=== PATIENT | male | born 1945 | race Caucasian/White ===

== ENCOUNTER 2017-06-27 08:21 | Inpatient (IN) ==
[2017-06-22 13:56] LABS: Appearance,Urine CLEAR; Bilirubin,Urine NEG (NEG); Color,Urine YELLOW; Glucose,Urine (UA) NEGATIVE (NEG); Leukocyte Esterase,Urine NEG /uL (NEG); Nitrate,Urine NEG (NEG); Protein,Urine NEG (NEG); Specific Gravity,Urine 1.014 (1.000-1.035); Urine Blood NEG mg/dL (<0.03); Urobilinogen,Urine NEG (NEG)
[2017-06-22 13:58] LABS: Basophils # (Auto) 0 K/mcL (0.0-0.3); Basophils % (Auto) 0.4 % (0.0-2.0); Eosinophils # (Auto) 0.2 K/mcL (0.0-0.7); Eosinophils % (Auto) 2.4 % (0.0-7.0); Granulocytes % (Auto) 65.4 % (38.0-78.0); Lymphocytes # (Auto) 1.9 K/mcL (1.5-4.8); Mean Corpuscular HGB Conc 33.8 g/dL (31.0-36.0); Mean Corpuscular Hemoglobin 32.5 pg (26.0-34.0); Monocytes # (Auto) 1.1 K/mcL (0.1-0.9); Monocytes % (Auto) 11.8 % (1.0-12.0); Platelet Count 346 K/mcL (140-440); RBC 4.56 M/mcL (4.50-5.90); Red Cell Distribution Width 13.8 % (11.5-14.5)
[2017-06-22 14:09] LABS: Blood Urea Nitrogen 18 mg/dl (8-23)
[~2017-06-27 08:21] MED LIST: ACETAMINOPHEN 500 MG TABLET PO SCH; CELECOXIB 200 MG CAPSULE PO SCH; PREGABALIN 75 MG CAPSULE PO SCH; ceFAZolin 1 GM VIAL IV SCH; oxyCODONE 10 MG TAB.ER.12H PO SCH
[2017-06-27] MEDS ORDERED: KETOROLAC 30 MG, ROPIVACAINE HCL/PF 49.5 ML, EPINEPHrine 0.5 MG, 0.9 % SODIUM CHLORIDE ... IJ ONE (09:00)
[2017-06-27] MEDS ORDERED: DEXAMETHASONE 10 MG/ML VIAL IV ONE (11:15)
[2017-06-27] MEDS ORDERED: ePHEDrine 50 MG/ML AMPUL IV ONE (11:15)
[2017-06-27] MEDS ORDERED: GLYCOPYRROLATE 0.2 MG/ML VIAL IV ONE (11:15)
[2017-06-27] MEDS ORDERED: PROPOFOL 200 MG/20 ML VIAL IV ONE (11:15)
[2017-06-27] MEDS ORDERED: MIDAZOLAM 5 MG/5 ML VIAL IV ONE (11:15)
[2017-06-27] MEDS ORDERED: ONDANSETRON 4 MG/2 ML VIAL IV ONE (11:15)
[2017-06-27] MEDS ORDERED: TRANEXAMIC ACID 1,000 MG/10 ML VIAL IV ONE (11:15)
[2017-06-27] MEDS ORDERED: LIDOCAINE HCL/PF 100 MG/5 ML SYRINGE IV ONE (11:15)
[2017-06-27] MEDS ORDERED: ROPIVACAINE HCL/PF 20 ML VIAL IJ ONE (11:15)
[2017-06-27] MEDS ORDERED: GENTAMICIN SULFATE 800 MG/20 ML VIAL IR ONE (11:38)
[2017-06-27] MEDS ORDERED: diphenhydrAMINE 50 MG/ML VIAL IV PRN (12:40)
[2017-06-27] MEDS ORDERED: fentaNYL 100 MCG/2 ML VIAL IV PRN (12:40)
[2017-06-27] MEDS ORDERED: MEPERIDINE 25 MG/ML SYRINGE IV PRN (12:40)
[2017-06-27] MEDS ORDERED: NALOXONE HCL 0.4 MG/ML VIAL IV PRN (12:40)
[2017-06-27] MEDS ORDERED: ONDANSETRON 4 MG/2 ML VIAL IV PRN ×2 (12:40→12:50)
[2017-06-27] MEDS ORDERED: METHOCARBAMOL 1,000 MG/10 ML VIAL IV PRN (12:40)
[2017-06-27] MEDS ORDERED: BENZOCAINE/MENTHOL 1 LOZENGE PO PRN ×2 (12:40→12:50)
[2017-06-27] MEDS ORDERED: PROMETHAZINE 25 MG/ML VIAL IV PRN (12:40)
[2017-06-27] MEDS ORDERED: IPRATROPIUM/ALBUTEROL 3 ML AMPUL.NEB NEB PRN (12:40)
[2017-06-27] MEDS ORDERED: LACTATED RINGERS 250 ML IV PRN (12:40)
[2017-06-27] MEDS ORDERED: FLUMAZENIL 0.1 MG/ML ML IV PRN (12:40)
[2017-06-27] MEDS ORDERED: LACTATED RINGERS 1,000 ML IV SCH (12:45)
[2017-06-27] MEDS ORDERED: TRANEXAMIC ACID 1,000 MG/10 ML VIAL IV SCH (12:50)
[2017-06-27] MEDS ORDERED: HYDROmorphone 2 MG/ML SYRINGE IV PRN (12:50)
[2017-06-27] MEDS ORDERED: FLEETS ADULT ENEMA PR PRN (12:50)
[2017-06-27] MEDS ORDERED: POLYETHYLENE GLYCOL 3350 17 GM PACKET PO PRN (12:50)
[2017-06-27] MEDS ORDERED: ACETAMINOPHEN 325 MG TABLET PO PRN (12:50)
[2017-06-27] MEDS ORDERED: HYDROcodone/APAP 10/325MG TABLET PO PRN (12:50)
[2017-06-27] MEDS ORDERED: MAGNESIUM HYDROXIDE 30 ML ORAL.SUSP PO PRN (12:50)
[2017-06-27] MEDS ORDERED: BISACODYL 10 MG SUPP.RECT PR PRN (12:50)
--- NOTE | 2017-06-27 12:50 | Brief Operative Note ---
Date of procedure: 06/27/17 Pre-op diagnosis: right knee djd Post-op diagnosis: same Procedure: right tka with robot valeriano Grafts/Implants: Yes Anesthesia: GETA Findings: severe djd Surgeon: Randal Biggs Grant Administrator: Roge Jackson Estimated blood loss (cc): 50 Tourniquet Time (Minutes): 54 Specimens Removed/Pathology: none sent Condition: stable Disposition: PACU
--- NOTE | 2017-06-27 13:43 | XRay Report ---
CLINICAL INFORMATION: Postop total knee prostheses COMPARISON: None. FINDINGS: Total knee prostheses is anatomically aligned. No osseous abnormality. Soft tissues swelling seen as expected IMPRESSION: Negative Interpreted and Authenticated by: Moshe Roberts 06/27/17
[2017-06-27] MEDS: 0.45 % SODIUM CHLORIDE 1,000 ML IV SCH ×2 (15:03→23:57)
--- NOTE | 2017-06-27 16:12 | Operative Note ---
DATE OF OPERATION: 06/27/2017 PREOPERATIVE DIAGNOSIS: Right knee degenerative arthritis, severe, throughout all three compartments. POSTOPERATIVE DIAGNOSES: Right knee degenerative arthritis, severe, throughout all three compartments, with the addition of a flexion contracture of about 13 to 14 degrees. PROCEDURE: Right total knee arthroplasty using the PRASHANT robot. SURGEON: Randal Biggs M.D. TEST OPERATOR: Roge Jackson PA-C. ANESTHESIA: General LMA anesthesia. COMPLICATIONS: None. TOURNIQUET TIME: 54 minutes. ESTIMATED BLOOD LOSS: About 50 mL. DESCRIPTION OF PROCEDURE: The patient was brought to the operating room. Once the knee had been confirmed as the operative site, we made a midline incision, a mid vastus approach performed. We inspected all the compartments of the knee, and there was a flexion contracture of about 12 to 13 degrees noted prior to the incision. After Ioban had been placed over the skin, we made our mid vastus approach as noted, exposing the joint, showing severe arthritis in all three compartments with large spurs medial and lateral and posteriorly. We then proceeded with the robotic total knee. The pins were placed above and below the knee. We removed the osteophytes, registered 30 points in the knee and registered intra-articular pins. We registered the hip center of rotation, medial and lateral malleolus, and then balanced the knee after removing osteophytes. Once the knee had been balanced and the implant adjusted, we then irrigated thoroughly and implanted the implant by making the bony cuts with the robot. These bony cuts were removed, punching into place and setting the tibial baseplate rotation per robotic alignment. We then removed the remnants of the meniscus, tapped into place the size 5 femur and size 5 tibial baseplate. We trialed a 9. This was still slightly tight medially. We released some of the medial collateral ligament which then allowed us place a 13 to balance both medial and lateral ligaments. We irrigated thoroughly. We then prepared the patella, measuring 24 mm in thickness. This was cut to 14 mm and a 36 mm patellar button was used. The holes were drilled and then we took the knee through range of motion, very stable. The patella tracked well. We then cemented into place the above-mentioned sizes and the patella, 13 mm poly. We kept the knee at 45 degrees until all cement was dry. Excess cement had been removed. We reirrigated the knee and then closed the mid vastus approach with #1 Stratafix x2 sutures. Skin was closed with 2-0 Vicryl and adhesive closure. The portals were closed with 4-0 nylon after the pins had been removed. There was no complication. The patient tolerated this well. ZAC:portia Job ID: [id number] Doc ID: [id number] Randal Biggs MD
[2017-06-27] MEDS: KETOROLAC 15 MG/ML VIAL IV SCH ×2 (18:03→23:57)
[2017-06-27] MEDS: 0.9 % SODIUM CHLORIDE 10 ML SYRINGE IV SCH ×2 (18:05→21:49)
[2017-06-27] MEDS: ceFAZolin 1 GM VIAL IV SCH (18:35)
[2017-06-27] MEDS ORDERED: SENNOSIDES 1 TABLET PO SCH (21:00)
[2017-06-27] MEDS ORDERED: MULTIVIT,THER IRON,CA,FA & MIN 1 TABLET PO SCH (21:00)
[2017-06-27] MEDS ORDERED: SIMVASTATIN 20 MG TABLET PO SCH (21:00)
[2017-06-27] MEDS ORDERED: AMITRIPTYLINE 25 MG TABLET PO SCH (21:00)
[2017-06-27] MEDS ORDERED: TEMAZEPAM 15 MG CAPSULE PO PRN (21:00)
[2017-06-27] MEDS ORDERED: LISINOPRIL 20 MG TABLET PO SCH (21:00)
[2017-06-27] MEDS ORDERED: amLODIPine 5 MG TABLET PO SCH (21:00)
[2017-06-27] MEDS ORDERED: FINASTERIDE 5 MG TABLET PO SCH (21:00)
[2017-06-27] MEDS ORDERED: FISH OIL 1,000 MG CAPSULE PO SCH (21:00)
[2017-06-27] MEDS: ASPIRIN 325 MG ENTERIC COATED TABLET PO SCH (21:10)
[2017-06-27] MEDS: DOCUSATE SODIUM 100 MG CAPSULE PO SCH (21:10)
[2017-06-28] MEDS: ceFAZolin 1 GM VIAL IV SCH (03:17)
[2017-06-28] MEDS: 0.9 % SODIUM CHLORIDE 10 ML SYRINGE IV SCH (05:38)
[2017-06-28] MEDS: KETOROLAC 15 MG/ML VIAL IV SCH ×2 (05:38→12:24)
--- NOTE | 2017-06-28 07:40 | Orthopedic Progress Note ---
Subjective Patient information: Note initiated : 06/28/17 at 7:39 am Service Date, if different from initiated Date: [] Patient: Jacob Maldonado 71 y/o M admitted on 06/27/17 for Right Total Knee Arthroplasty Franco. Chief Complaint: [Pt is stable this morning on post operative day 1 without any significant concerns or complaints. Patients vital signs have remained stable. Patients dressing is dry and exhibits a grossly intact neurovascular and neuromotor exam. Patients 10 point ROS is otherwise negative. ] Objective Vital signs: Vital Signs Temp Pulse Resp BP BP Pulse Ox 06/28/17 06:59 95 06/28/17 05:15 95 06/28/17 03:00 97.9 F 83 16 100/63 94 06/28/17 00:04 92 06/28/17 00:00 98.8 F 90 16 111/67 92 06/27/17 20:00 97.3 F 87 16 125/72 93 06/27/17 17:00 98 06/27/17 15:45 112/73 98 06/27/17 15:17 109/70 98 06/27/17 14:47 98/70 98 06/27/17 14:23 98/64 97 06/27/17 14:03 113/62 96 06/27/17 14:00 95 06/27/17 13:32 98.4 F 12 103/64 95 06/27/17 13:27 97.7 F 16 108/66 92 06/27/17 13:22 97.7 F 16 104/58 92 06/27/17 13:17 97.7 F 16 94/54 92 06/27/17 13:12 97.7 F 16 95/52 92 06/27/17 13:07 97.7 F 16 95/54 92 06/27/17 08:30 97.2 F 16 107/72 92 Intake and Output 06/27/17 06/28/17 06/28/17 21:59 05:59 13:59 Intake Total 640 / 640 1700 / 1700 Output Total 920 / 920 1650 / 1650 300 / 300 Balance -280 / -280 50 / 50 -300 / -300 Intake: IV 890 / 890 Sodium Chloride 0.45% 1,000 ml 890 / 890 @ 100 mls/hr IV .Q10H SAMRA Rx#: [id number] Oral 640 / 640 810 / 810 Output: Void Amount 920 / 920 1650 / 1650 300 / 300 Straight 620 / 620 400 / 400 Other: Meal Dinner [place], jello, cheese stik Percent of Meal Consumed 100% 100% Feeding Ability Independent Independent # Voids 2 Weight 232 lb Intake & Output: Intake & Output 06/27/17 06/28/17 06/28/17 21:59 05:59 13:59 Intake Total 640 / 640 1700 / 1700 Output Total 920 / 920 1650 / 1650 300 / 300 Balance -280 / -280 50 / 50 -300 / -300 Weight 232 lb Intake: IV 890 / 890 Sodium Chloride 0.45% 1,000 ml 890 / 890 @ 100 mls/hr IV .Q10H SAMRA Rx#: [id number] Oral 640 / 640 810 / 810 Output: Void Amount 920 / 920 1650 / 1650 300 / 300 Straight 620 / 620 400 / 400 Other: Meal Dinner [place], jello, cheese stik Percent of Meal Consumed 100% 100% Feeding Ability Independent Independent # Voids 2 Incision: Yes healing Incision clean and dry: Yes Dressing: Yes clean, Yes dry Weight bearing status: full Neurological exam IM: Yes motor sensory intact, Yes neurovascular intact Extremities exam IM: Yes Foot pink and warm, Yes neurovascular intact - Labs CBC & BMP: 06/28/17 05:15 06/22/17 10:07 Labs: Orthopedic Labs 06/22/17 10:07 PT 12.5 INR 0.9 APTT 29 06/28/17 06/22/17 05:15 10:07 Hgb 14.8 Hct 33.4 L 43.7 Assessment and Plan (1) Hx of total knee arthroplasty The patient has been educated regarding dressing care, Physical Therapy recommendations, home exercises, restrictions, and follow up appointments. The patient has had all necessary DME prescribed. The patient has remained stable during their hospital course. The patient was discharge with a stable exam. Status: Acute
--- NOTE | 2017-06-28 07:42 | Discharge Summary ---
Ortho Discharge - TKA - Patient Instructions Diet: Regular Diet Activity: activity as tolerated, weight bearing as tolerated Total Knee Protocol: For Total Knee: Start ROM NATA with stationary bike or rocking chair. Work on gaining full extension of knee. Posterior dislocation precautions provided. Hip abductor strengthening and gait training instructions provided. Apply Cryocuff as instructed. Dressing Care: May shower in 2 days Patient Education: Total Knee Replacement (DC) Additional Instructions: CPM for home use. - Problem Maintenance (1) Hx of total knee arthroplasty Status: Acute - Follow Up Plan Follow Up Appointments: Randal Biggs MD [Physician] - 07/12/17 10:10 am Disposition: Home, Self-Care Prognosis: Good Rehab Potential: Good I certify that the patient requires SNF services: No Overall status at discharge: patient is progressing back to baseline - Orders For Discharge Prescriptions: Aspirin [Ecotrin] 325 mg PO BID #60 tab.ec Docusate Sodium [Colace] 100 mg PO BID #60 cap HYDROcodone/APAP 10/325MG [[place] 10/325Mg] 1 - 2 tab PO Q4HP PRN #75 tab PRN Reason: Pain Level 3-6
[2017-06-28] MEDS: 0.45 % SODIUM CHLORIDE 1,000 ML IV SCH (09:50)
[2017-06-28] MEDS: DOCUSATE SODIUM 100 MG CAPSULE PO SCH (09:50)
[2017-06-28] MEDS: ASPIRIN 325 MG ENTERIC COATED TABLET PO SCH (09:50)
[2017-06-28] MEDS ORDERED: FLU VACC QS2017-18 36MOS UP/PF 60 MCG/0.5 ML SYRINGE IM ONE (10:00)
[2017-06-28] MEDS ORDERED: PNEUMOCOCCAL 23-VAL P-SAC VAC 0.5 ML VIAL IM ONE (10:00)
== END 2017-06-28 15:45 | disposition home or self-care (01) | DRG 470 ==
LOC: MEDSUR 08:21
PROVIDERS: ADMIT Orthopaedic Surgery; ATTEND Orthopaedic Surgery

== ENCOUNTER 2017-10-10 07:50 | Inpatient (IN) ==
[2017-10-05 16:57] LABS: Basophils # (Auto) 0.1 K/mcL (0.0-0.3); Basophils % (Auto) 0.6 % (0.0-2.0); Blood Urea Nitrogen 19 mg/dl (8-23); Eosinophils # (Auto) 0.4 K/mcL (0.0-0.7); Eosinophils % (Auto) 3.7 % (0.0-7.0); Granulocytes % (Auto) 69.7 % (38.0-78.0); Lymphocytes # (Auto) 1.6 K/mcL (1.5-4.8); Lymphocytes % (Auto) 16.6 % (15.5-49.0); Mean Corpuscular HGB Conc 34.3 g/dL (31.0-36.0); Mean Corpuscular Hemoglobin 32.2 pg (26.0-34.0); Monocytes # (Auto) 0.9 K/mcL (0.1-0.9); Monocytes % (Auto) 9.4 % (1.0-12.0); Platelet Count 347 K/mcL (140-440); Red Cell Distribution Width 13.7 % (11.5-14.5)
[2017-10-05 19:41] LABS: Appearance,Urine CLEAR; Bilirubin,Urine NEG (NEG); Color,Urine YELLOW; Glucose,Urine (UA) NEGATIVE (NEG); Leukocyte Esterase,Urine NEG /uL (NEG); Protein,Urine NEG (NEG); Specific Gravity,Urine 1.016 (1.000-1.035); Urine Blood NEG mg/dL (<0.03); Urobilinogen,Urine NEG (NEG)
[2017-10-10] MEDS ORDERED: KETOROLAC 30 MG, ROPIVACAINE HCL/PF 49.5 ML, EPINEPHrine 0.5 MG, 0.9 % SODIUM CHLORIDE ... IJ ONE (08:00)
[2017-10-10] MEDS ORDERED: PROPOFOL 200 MG/20 ML VIAL IV ONE (10:45)
[2017-10-10] MEDS ORDERED: MIDAZOLAM 5 MG/5 ML VIAL IV ONE (10:45)
[2017-10-10] MEDS ORDERED: LIDOCAINE HCL/PF 100 MG/5 ML SYRINGE IV ONE (10:45)
[2017-10-10] MEDS ORDERED: GLYCOPYRROLATE 0.2 MG/ML VIAL IV ONE (10:45)
[2017-10-10] MEDS ORDERED: HETASTARCH 6% 500 ML BAG IV ONE (10:45)
[2017-10-10] MEDS ORDERED: DEXAMETHASONE 10 MG/ML VIAL IV ONE (10:45)
[2017-10-10] MEDS ORDERED: ONDANSETRON 4 MG/2 ML VIAL IV ONE (10:45)
[2017-10-10] MEDS ORDERED: ROPIVACAINE HCL/PF 20 ML VIAL IJ ONE (10:45)
[2017-10-10] MEDS ORDERED: ePHEDrine 50 MG/ML AMPUL IV ONE (10:45)
[2017-10-10] MEDS ORDERED: TRANEXAMIC ACID 1,000 MG/10 ML VIAL IV ONE (10:45)
[2017-10-10] MEDS ORDERED: GENTAMICIN SULFATE 800 MG/20 ML VIAL IR ONE (11:25)
[2017-10-10] MEDS ORDERED: FLUMAZENIL 0.1 MG/ML ML IV PRN (11:53)
[2017-10-10] MEDS ORDERED: ePHEDrine 50 MG/ML AMPUL IV PRN (11:53)
[2017-10-10] MEDS ORDERED: PROMETHAZINE 25 MG/ML VIAL IV PRN (11:53)
[2017-10-10] MEDS ORDERED: IPRATROPIUM/ALBUTEROL 3 ML AMPUL.NEB NEB PRN (11:53)
[2017-10-10] MEDS ORDERED: NALOXONE HCL 0.4 MG/ML VIAL IV PRN (11:53)
[2017-10-10] MEDS ORDERED: ONDANSETRON 4 MG/2 ML VIAL IV PRN ×2 (11:53→12:19)
[2017-10-10] MEDS ORDERED: fentaNYL 100 MCG/2 ML VIAL IV PRN (11:53)
[2017-10-10] MEDS ORDERED: diphenhydrAMINE 50 MG/ML VIAL IV PRN (11:53)
[2017-10-10] MEDS ORDERED: LACTATED RINGERS 250 ML IV PRN (11:53)
[2017-10-10] MEDS ORDERED: BENZOCAINE/MENTHOL 1 LOZENGE PO PRN ×2 (11:53→12:19)
[2017-10-10] MEDS ORDERED: LACTATED RINGERS 1,000 ML IV SCH (12:00)
[2017-10-10] MEDS ORDERED: HYDROmorphone 2 MG/ML VIAL IV PRN (12:19)
[2017-10-10] MEDS ORDERED: FLEETS ADULT ENEMA PR PRN (12:19)
[2017-10-10] MEDS ORDERED: MAGNESIUM HYDROXIDE 30 ML ORAL.SUSP PO PRN (12:19)
[2017-10-10] MEDS ORDERED: ACETAMINOPHEN 325 MG TABLET PO PRN (12:19)
[2017-10-10] MEDS ORDERED: TRANEXAMIC ACID 1,000 MG/10 ML VIAL IV SCH (12:19)
[2017-10-10] MEDS ORDERED: POLYETHYLENE GLYCOL 3350 17 GM PACKET PO PRN (12:19)
[2017-10-10] MEDS ORDERED: BISACODYL 10 MG SUPP.RECT PR PRN (12:19)
--- NOTE | 2017-10-10 12:53 | Operative Note ---
DATE OF OPERATION: 10/10/2017 PREOPERATIVE DIAGNOSIS: Left knee degenerative arthritis. POSTOPERATIVE DIAGNOSIS: Left knee degenerative arthritis. PROCEDURE: Left total knee arthroplasty using the PRASHANT robot. SURGEON: Randal Biggs MD VARIETY PERFORMER: Roge Jackson PA-C ANESTHESIA: General LMA anesthesia. COMPLICATIONS: None. DESCRIPTION OF PROCEDURE: The patient was brought to the operating room and put to sleep with general LMA anesthesia. A timeout was performed confirming the preoperative plan and side. We confirmed the left knee. Once done, the preop antibiotics were given and tranexamic acid given. We exsanguinated the leg and inflated the tourniquet to 250 pounds of pressure. We made a midline incision, mid vastus approach and placed pins above and below the knee for the robot, 30 points on the femur and tibia were registered. We balanced the knee after removing osteophytes and placed intra-articular pins. Once these were done, we then irrigated thoroughly and brought in the robot and made our tibial cut, made our posterior cut, anterior femoral cut, anterior chamfer cut, anterior femoral cut and posterior chamfer. Once done, we then irrigated and took the bony fragments out and removed the remnants of the meniscus, and then put into place size 6 tibial baseplate, size 5 cruciate retained femur lateralizing as far as we could and then a 9 mm poly. There was no complication. The patient tolerated this well. We irrigated thoroughly and then removed osteophytes posteriorly. We prepared the patella, measured 24 mm in total thickness. This was cut to 14 mm and then a 36 mm patellar button put into place. A small chamfer cut laterally. We then cemented into place the above-mentioned sizes. Excess cement was removed. We then placed a 9 mm poly and kept the knee at 45 degrees so all the cement was dry. We then reinspected for any loose fragments of cement and closed the mid vastus approach with #1 Stratafix x2 stitches, 2-0 Vicryl and adhesive closure. The patient tolerated this well. There were no complications. Sterile bandage applied. Tourniquet deflated at approximately 59 minutes. RBH:camille Job ID: [id number] Doc ID: [id number] Randal Biggs MD
--- NOTE | 2017-10-10 13:13 | XRay Report ---
HISTORY: Reason for Exam:Post-Op Total Knee FINDINGS: There is a well positioned total knee prosthesis. No fractures present. There is a small bone chip between the top of the patella and the adjacent anterior margin of the distal femur. IMPRESSION: Well-positioned left total knee prosthesis Interpreted and Authenticated by: Ronan Hooper 10/10/17
[2017-10-10] MEDS: 0.45 % SODIUM CHLORIDE 1,000 ML IV SCH ×2 (16:20→22:13)
[2017-10-10] MEDS: ceFAZolin 1 GM VIAL IV SCH (18:26)
[2017-10-10] MEDS: 0.9 % SODIUM CHLORIDE 10 ML SYRINGE IV SCH ×2 (18:26→22:11)
[2017-10-10] MEDS: KETOROLAC 15 MG/ML VIAL IV SCH ×2 (18:26→23:35)
[2017-10-10] MEDS ORDERED: TEMAZEPAM 15 MG CAPSULE PO PRN (21:00)
[2017-10-10] MEDS ORDERED: AMITRIPTYLINE 25 MG TABLET PO SCH (21:00)
[2017-10-10] MEDS ORDERED: FISH OIL 1,000 MG CAPSULE PO SCH (21:00)
[2017-10-10] MEDS ORDERED: LISINOPRIL 20 MG TABLET PO SCH (21:00)
[2017-10-10] MEDS ORDERED: FINASTERIDE 5 MG TABLET PO SCH (21:00)
[2017-10-10] MEDS ORDERED: SIMVASTATIN 20 MG TABLET PO SCH (21:00)
[2017-10-10] MEDS ORDERED: amLODIPine 5 MG TABLET PO SCH (21:00)
[2017-10-10] MEDS ORDERED: SENNOSIDES 1 TABLET PO SCH (21:00)
[2017-10-10] MEDS: DOCUSATE SODIUM 100 MG CAPSULE PO SCH (22:06)
[2017-10-10] MEDS: ASPIRIN 325 MG ENTERIC COATED TABLET PO SCH (22:07)
[2017-10-10] MEDS: HYDROcodone/APAP 10/325MG TABLET PO PRN (23:44)
[2017-10-11] MEDS: ceFAZolin 1 GM VIAL IV SCH (02:49)
[2017-10-11] MEDS: 0.9 % SODIUM CHLORIDE 10 ML SYRINGE IV SCH (06:08)
[2017-10-11] MEDS: KETOROLAC 15 MG/ML VIAL IV SCH ×2 (06:11→11:52)
--- NOTE | 2017-10-11 07:44 | Orthopedic Progress Note ---
Subjective Patient information: Note initiated : 10/11/17 at 7:43 am Service Date, if different from initiated Date: [] Patient: Jacob Maldonado 71 y/o M admitted on 10/10/17 for Left Robotic Total Knee Arthroplasty. Chief Complaint: [Pt is stable this morning on post operative day 1 without any significant concerns or complaints. Patients vital signs have remained stable. Patients dressing is dry and is grossly instact from a neurovascular and motor standpoint. Patients 10 point ROS is otherwise negative. ] Objective Vital signs: Vital Signs Temp Pulse Resp BP BP Pulse Ox 10/11/17 04:00 98.8 F 86 16 92/55 90 10/11/17 00:00 98.7 F 91 H 18 91/59 95 10/10/17 20:00 97.5 F 86 18 110/64 94 10/10/17 16:08 106/69 98 10/10/17 15:38 104/73 97 10/10/17 15:08 98/64 95 10/10/17 14:30 95 10/10/17 14:17 93/59 91 10/10/17 14:02 85/51 96 10/10/17 13:47 90/56 96 10/10/17 13:32 88/53 97 10/10/17 13:20 97.4 F 79 10 L 93/54 97 10/10/17 13:10 97.5 F 80 10 L 101/52 97 10/10/17 12:55 98.1 F 79 9 L 102/55 100 10/10/17 12:50 82 9 L 118/99 99 10/10/17 12:45 85 12 106/61 100 10/10/17 12:40 97.8 F 72 10 L 106/61 95 10/10/17 08:19 98.2 F 18 113/72 95 Intake and Output 10/10/17 10/11/17 10/11/17 21:59 05:59 13:59 Intake Total 970 / 970 740 / 740 Output Total 800 / 800 750 / 750 Balance 170 / 170 -10 / -10 Intake: Oral 970 / 970 740 / 740 Output: Urine Catheter Amount 800 / 800 750 / 750 Other: Meal Ice Cream [place] sand, 2 pkg. henry crackers Percent of Meal Consumed 100% 100% Feeding Ability Independent Independent Weight 221 lb 9.6 oz Intake & Output: Intake & Output 10/10/17 10/11/17 10/11/17 21:59 05:59 13:59 Intake Total 970 / 970 740 / 740 Output Total 800 / 800 750 / 750 Balance 170 / 170 -10 / -10 Weight 221 lb 9.6 oz Intake: Oral 970 / 970 740 / 740 Output: Urine Catheter Amount 800 / 800 750 / 750 Other: Meal Ice Cream [place] sand, 2 pkg. henry crackers Percent of Meal Consumed 100% 100% Feeding Ability Independent Independent Incision: Yes healing Incision clean and dry: Yes Dressing: Yes clean, Yes dry Weight bearing status: full Neurological exam IM: Yes motor sensory intact, Yes neurovascular intact Extremities exam IM: Yes Foot pink and warm, Yes neurovascular intact - Labs CBC & BMP: 10/11/17 04:45 10/05/17 14:39 Labs: Orthopedic Labs 10/05/17 14:39 PT 13.3 INR 1.0 APTT 30 10/11/17 10/05/17 04:45 14:39 Hgb 14.8 Hct 34.4 L 43.2 Assessment and Plan (1) Hx of total knee arthroplasty The patient has been educated regarding dressing care, Physical Therapy recommendations, home exercises, restrictions, and follow up appointments. The patient has had all necessary DME prescribed. The patient has remained stable during their hospital course. The patient was discharge with a stable exam. Leave Dermabond patch intact until followup Status: Acute
--- NOTE | 2017-10-11 07:46 | Discharge Summary ---
Ortho Discharge - TKA - Patient Instructions Diet: Regular Diet Activity: activity as tolerated, weight bearing as tolerated Total Knee Protocol: For Total Knee: Start ROM NATA with stationary bike or rocking chair. Work on gaining full extension of knee. Posterior dislocation precautions provided. Hip abductor strengthening and gait training instructions provided. Apply Cryocuff as instructed. Dressing Care: May shower in 2 days Patient Education: Total Knee Replacement (DC) Additional Instructions: CPM for home use - Problem Maintenance (1) Hx of total knee arthroplasty Status: Acute - Follow Up Plan Follow Up Appointments: Roge Jackson PA-C [Physician Service Employee] - 10/25/17 9:30 am Disposition: Home, Self-Care Prognosis: Good Rehab Potential: Good I certify that the patient requires SNF services: No Overall status at discharge: patient is progressing back to baseline - Orders For Discharge Prescriptions: Aspirin [Ecotrin] 325 mg PO BID #60 tab.ec Docusate Sodium [Colace] 100 mg PO BID #60 cap HYDROcodone/APAP 10/325MG [[place] 10-325Mg] 1 - 2 tab PO Q4HP PRN #75 tab PRN Reason: Pain Level 3-6
[2017-10-11] MEDS ORDERED: FERROUS SULFATE 325 MG TABLET PO SCH (08:00)
[2017-10-11] MEDS: DOCUSATE SODIUM 100 MG CAPSULE PO SCH (08:50)
[2017-10-11] MEDS: HYDROcodone/APAP 10/325MG TABLET PO PRN ×2 (08:51→12:01)
[2017-10-11] MEDS: ASPIRIN 325 MG ENTERIC COATED TABLET PO SCH (08:51)
[2017-10-11] MEDS: 0.45 % SODIUM CHLORIDE 1,000 ML IV SCH (08:53)
[2017-10-11] MEDS ORDERED: VITAMIN D3 5,000 UNIT CAPSULE PO SCH (09:00)
[2017-10-11] MEDS ORDERED: MULTIVIT,THER IRON,CA,FA & MIN 1 TABLET PO SCH (09:00)
[2017-10-11] MEDS ORDERED: MAGNESIUM OXIDE 400 MG TABLET PO SCH (09:00)
[2017-10-11] MEDS ORDERED: CIPROFLOXACIN 500 MG TABLET PO SCH (11:31)
[2017-10-12] MEDS ORDERED: CIPROFLOXACIN 500 MG TABLET PO SCH (09:00)
== END 2017-10-11 15:15 | disposition home or self-care (01) | DRG 470 ==
LOC: MEDSUR 07:50
PROVIDERS: ADMIT Orthopaedic Surgery; ATTEND Orthopaedic Surgery

== ENCOUNTER 2019-09-17 08:49 | Inpatient (IN) ==
[2019-09-11 13:27] LABS: Appearance,Urine CLEAR; Bilirubin,Urine NEG (NEG); Color,Urine YELLOW; Culture Indicated,Urine NO; Glucose,Urine (UA) NEGATIVE (NEG); Ketones,Urine NEG (NEG); Leukocyte Esterase,Urine NEG /uL (NEG); Nitrate,Urine NEG (NEG); Protein,Urine NEG (NEG); Specific Gravity,Urine 1.016 (1.000-1.035); Urine Blood NEG mg/dL (<0.03); Urobilinogen,Urine NEG (NEG)
[2019-09-11 14:12] LABS: Basophils # (Auto) 0.06 K/mcL (0.00-0.30); Basophils % (Auto) 0.8 % (0.0-2.0); Eosinophils # (Auto) 0.17 K/mcL (0.00-0.70); Eosinophils % (Auto) 2.2 % (0.0-7.0); Granulocytes % (Auto) 67.4 % (38.0-78.0); Hematocrit 41.3 % (40.1-51.0); Hemoglobin 13.6 g/dL (13.7-17.5); Lymphocytes % (Auto) 15.3 % (15.5-49.0); Mean Cell Volume 96.7 fL (80.0-100.0); Mean Corpuscular HGB Conc 32.9 g/dL (31.0-36.0); Mean Platelet Volume 9.1 fL (7.4-10.4); Monocytes # (Auto) 1.12 K/mcL (0.10-0.90); Monocytes % (Auto) 14.3 % (1.0-12.0); Platelet Count 282 K/mcL (140-440); RBC 4.27 M/mcL (4.63-6.08); Red Cell Distribution Width 13.4 % (11.5-14.5); WBC 7.9 K/mcL (4.50-11.00)
[2019-09-11 14:16] LABS: Blood Urea Nitrogen 16 mg/dl (8-23); Calcium 9.7 mg/dl (8.6-10.4); Carbon Dioxide 28 mmol/L (22-30); Chloride 99 mmol/L (96-108); Glomerular Filtration Rate 59; Glucose 96 mg/dL (70-105)
[~2019-09-17 08:49] MED LIST changes: +0.9 % SODIUM CHLORIDE 9 ML, KETOROLAC 30 MG, ROPIVACAINE HCL/PF 49.5 ML, EPINEPHrine 0.... IJ SCH; -CELECOXIB 200 MG CAPSULE PO SCH; -ceFAZolin 1 GM VIAL IV SCH; +ceFAZolin 2 GM in DEXTROSE 5% IN WATER 50 ML IV SCH
[2019-09-17] MEDS ORDERED: SCOPOLAMINE 1 PATCH PATCH TOPICAL PRN (09:00)
[2019-09-17] MEDS ORDERED: IPRATROPIUM/ALBUTEROL 3 ML AMPUL.NEB NEB PRN ×2 (09:00→13:27)
[2019-09-17] MEDS ORDERED: KETAMINE 100 MG/ML ML IV ONE (12:15)
[2019-09-17] MEDS ORDERED: MIDAZOLAM 2 MG/2 ML VIAL IV ONE (12:15)
[2019-09-17] MEDS ORDERED: PROPOFOL 200 MG/20 ML VIAL IV ONE (12:15)
[2019-09-17] MEDS ORDERED: GLYCOPYRROLATE 0.2 MG/ML VIAL IV ONE (12:15)
[2019-09-17] MEDS ORDERED: ONDANSETRON 4 MG/2 ML VIAL IV ONE (12:15)
[2019-09-17] MEDS ORDERED: TRANEXAMIC ACID 1,000 MG/10 ML VIAL IV ONE (12:15)
[2019-09-17] MEDS ORDERED: PHENYLEPHRINE 10 MG/ML VIAL IV ONE (12:15)
[2019-09-17] MEDS ORDERED: DEXAMETHASONE 10 MG/ML VIAL IV ONE (12:15)
[2019-09-17] MEDS ORDERED: GENTAMICIN SULFATE 800 MG/20 ML VIAL IR ONE (12:46)
[2019-09-17] MEDS ORDERED: MEPERIDINE 25 MG/ML SYRINGE IV PRN (13:27)
[2019-09-17] MEDS ORDERED: fentaNYL 100 MCG/2 ML VIAL IV PRN (13:27)
[2019-09-17] MEDS ORDERED: KETOROLAC 15 MG/ML VIAL IV PRN (13:27)
[2019-09-17] MEDS ORDERED: METHOCARBAMOL 1,000 MG/10 ML VIAL IV PRN (13:27)
[2019-09-17] MEDS ORDERED: ePHEDrine 50 MG/ML AMPUL IV PRN (13:27)
[2019-09-17] MEDS ORDERED: ONDANSETRON 4 MG/2 ML VIAL IV PRN ×2 (13:27→13:51)
[2019-09-17] MEDS ORDERED: LACTATED RINGERS 1,000 ML IV SCH (13:30)
--- NOTE | 2019-09-17 13:50 | Brief Operative Note ---
Date of procedure: 09/17/19 Pre-op diagnosis: left hip djd Post-op diagnosis: same Procedure: left hip ernesto Grafts/Implants: Yes Anesthesia: GETA Surgeon: Randal Biggs Model Maker Scale: Roge Jackson Estimated blood loss (cc): 200 Specimens Removed/Pathology: none sent Condition: stable Disposition: PACU
[2019-09-17] MEDS ORDERED: BISACODYL 10 MG SUPP.RECT PR PRN (13:51)
[2019-09-17] MEDS ORDERED: TRANEXAMIC ACID 1,000 MG/10 ML VIAL IV SCH (13:51)
[2019-09-17] MEDS ORDERED: HYDROmorphone 2 MG/ML VIAL IV PRN (13:51)
[2019-09-17] MEDS ORDERED: BENZOCAINE/MENTHOL 1 LOZENGE PO PRN (13:51)
[2019-09-17] MEDS ORDERED: POLYETHYLENE GLYCOL 3350 17 GM PACKET PO PRN (13:51)
[2019-09-17] MEDS ORDERED: ACETAMINOPHEN 325 MG TABLET PO PRN (13:51)
[2019-09-17] MEDS ORDERED: FLEETS ADULT ENEMA PR PRN (13:51)
[2019-09-17] MEDS ORDERED: MAGNESIUM HYDROXIDE 30 ML ORAL.SUSP PO PRN (13:51)
--- NOTE | 2019-09-17 13:57 | Discharge Summary ---
Ortho Discharge - BERTIN - Patient Instructions Diet: Regular Diet Activity: activity as tolerated, weight bearing as tolerated Total Hip Protocol: Follow activity instructions as provided by Physical Therapy. Dressing Care: May shower in 2 days - Follow Up Plan Follow Up Appointments: Roge Jackson PA-C [Physician Triage Register Nurse] - 10/04/19 8:40 am Disposition: Home, Self-Care Prognosis: Good Rehab Potential: Good I certify that the patient requires SNF services: No Overall status at discharge: patient is progressing back to baseline - Orders For Discharge Prescriptions: Docusate Sodium [Colace] 100 mg PO BID #60 cap Transmission Status: Pending to [facility] Aspirin [Ecotrin] 325 mg PO BID #60 tab.ec Transmission Status: Pending to [facility] 2005 HYDROcodone/APAP 10/325MG [[place] 10-325Mg] 1 - 2 tab PO Q4H PRN #75 tab PRN Reason: Pain Prescription Printed
--- NOTE | 2019-09-17 14:23 | XRay Report ---
CLINICAL INFORMATION: Postoperative left hip TECHNIQUE: AP pelvis. AP and lateral left hip COMPARISON: None. FINDINGS: Status post left total hip arthroplasty. Acetabular and femoral components are anatomic. Pelvis is negative. No pelvic fracture. A lytic lesion. Sacrum is negative. There is degenerative disc disease in the lower lumbar spine. There are disc spacers at L5-S1. There is degenerative joint disease in the right hip. IMPRESSION: Status post left total hip arthroplasty Interpreted and Authenticated by: Moshe Marie 09/17/19
[2019-09-17] MEDS: 0.9 % SODIUM CHLORIDE 10 ML SYRINGE IV SCH ×2 (15:06→21:48)
[2019-09-17] MEDS: LACTATED RINGERS 1,000 ML IV SCH (15:07)
[2019-09-17] MEDS: HYDROcodone/APAP 10/325MG TABLET PO PRN ×2 (17:49→21:42)
[2019-09-17] MEDS: ASPIRIN 325 MG ENTERIC COATED TABLET PO SCH (20:27)
[2019-09-17] MEDS: DOCUSATE SODIUM 100 MG CAPSULE PO SCH (20:28)
[2019-09-17] MEDS: KETOROLAC 15 MG/ML VIAL IV PRN (20:31)
[2019-09-17] MEDS ORDERED: MULTIVIT,THER IRON,CA,FA & MIN 1 TABLET PO SCH (21:00)
[2019-09-17] MEDS ORDERED: TAMSULOSIN 0.4 MG CAPSULE PO SCH (21:00)
[2019-09-17] MEDS ORDERED: SENNOSIDES 1 TABLET PO SCH (21:00)
[2019-09-17] MEDS ORDERED: FISH OIL 1,000 MG CAPSULE PO SCH (21:00)
[2019-09-17] MEDS ORDERED: LISINOPRIL 20 MG TABLET PO SCH (21:00)
[2019-09-17] MEDS ORDERED: SIMVASTATIN 20 MG TABLET PO SCH (21:00)
[2019-09-17] MEDS ORDERED: TEMAZEPAM 15 MG CAPSULE PO PRN (21:00)
[2019-09-17] MEDS ORDERED: MAGNESIUM OXIDE 400 MG TABLET PO SCH (21:00)
[2019-09-17] MEDS ORDERED: FINASTERIDE 5 MG TABLET PO SCH (21:00)
[2019-09-17] MEDS ORDERED: amLODIPine 5 MG TABLET PO SCH (21:00)
[2019-09-17] MEDS ORDERED: VITAMIN D3 5,000 UNIT CAPSULE PO SCH (21:00)
[2019-09-17] MEDS ORDERED: AMITRIPTYLINE 25 MG TABLET PO SCH (21:00)
[2019-09-17] MEDS ORDERED: ceFAZolin 1 GM VIAL ONE (22:25)
[2019-09-17] MEDS: ceFAZolin 2 GM in DEXTROSE 5% IN WATER 50 ML IV SCH (22:32)
[2019-09-18] MEDS: LACTATED RINGERS 1,000 ML IV SCH ×2 (00:33→09:31)
[2019-09-18] MEDS: 0.9 % SODIUM CHLORIDE 10 ML SYRINGE IV SCH (04:14)
[2019-09-18] MEDS: KETOROLAC 15 MG/ML VIAL IV PRN (05:57)
[2019-09-18] MEDS ORDERED: ceFAZolin 1 GM VIAL ONE (06:01)
[2019-09-18] MEDS: ceFAZolin 2 GM in DEXTROSE 5% IN WATER 50 ML IV SCH (06:08)
[2019-09-18] MEDS: DOCUSATE SODIUM 100 MG CAPSULE PO SCH (08:41)
[2019-09-18] MEDS: ASPIRIN 325 MG ENTERIC COATED TABLET PO SCH (08:41)
--- NOTE | 2019-09-24 14:43 | Operative Note ---
DATE OF OPERATION: 09/17/2019 PREOPERATIVE DIAGNOSIS: Left hip degenerative arthritis, severe. POSTOPERATIVE DIAGNOSIS: Left hip degenerative arthritis, severe. PROCEDURE: Left total hip arthroplasty with a superior approach. IMPLANTS: [place] components. COMPLICATIONS: None. ANESTHESIA: General endotracheal anesthesia. SURGEON: Randal Biggs MD STORY EDITOR: Roge Jackson PA-C. This provider's expertise and technical skill were required throughout the case. The LESLIE assisted with preoperative coordination, intraoperative retraction, wound closure, dressing and splint application, as well as postoperative documentation and care coordination. ESTIMATED BLOOD LOSS: 200 mL SPECIMENS REMOVED: None. CONDITION: Stable. DISPOSITION: To PACU. DESCRIPTION OF PROCEDURE: The patient was brought to the operating room and put to sleep with general LMA anesthesia. Once asleep, the patient had the left hip sterilely prepped and draped in a right lateral position using a Neville positioner. A timeout was performed. We confirmed this as the operative site by initials, consent form and x-rays. We made a superior approach to the hip and identified the gluteus eben which was incised in line with the fibers. We placed a Charnley retractor and made a superior approach. We released the capsule, dislocated the hip and made the neck cut at 32 mm in length. The ball was removed. We then reamed up to the size 54 for the cup. A 54 cup was placed with 1 screw. A hooded liner was placed and then we broached up to the size 6 on the femur. We then trialed the size 6. X-rays were taken, which showed excellent leg length. We then put a small amount of cement on the distal tip of the stem for immediate fixation. The stem was then placed and broached, and we placed a standard thickness poly. The patient tolerated this well with a ceramic 36 mm ceramic ball. This had the anatomic reduction very stable. We irrigated thoroughly, closed the fascial layer with Vicryl and Stratafix. We closed the skin with Stratafix and an adhesive closure. Blood loss was 200 mL. No complications. RBH:camille Job ID: [id number] Doc ID: [id number] Randal Biggs MD
== END 2019-09-18 10:40 | disposition home or self-care (01) | DRG 470 ==
LOC: MEDSUR 08:49
PROVIDERS: ADMIT Orthopaedic Surgery; ATTEND Orthopaedic Surgery